=== PATIENT | male | born 1980 | race Caucasian/White ===

== ENCOUNTER 2019-10-08 08:22 | Emergency (ER) | payer BC ==
[2019-10-08] MEDS ORDERED: FLUORESCEIN STRIPS 1 MG STRIP LEFT EYE ONE (08:26)
[2019-10-08 08:29] VITALS: BP 127/79; PULSE 71; RESP 18; TEMP 98
[2019-10-08] MEDS ORDERED: PROPARACAINE 0.5% OPHTH DROPS 15 ML BTL LEFT EYE STA (08:30)
[2019-10-08] MEDS ORDERED: TOBRAMYCIN 0.3% OPHTH DROPS 5 ML BTL LEFT EYE STA (08:44)
--- NOTE | 2019-10-08 08:49 | ED ---
General Adult HPI - General Chief complaint: Eye Problems Stated complaint: lt eye pain Time Seen by Provider: 10/08/19 08:29 Source: patient, RN notes reviewed Mode of arrival: ambulatory Limitations: no limitations - History of Present Illness Initial comments: Patient is a pleasant 39-year-old male presenting to the emergency Department with left eye discomfort. Patient was cutting some metal earlier in the day yesterday however did have glasses on. Patient states his eye was bugging him in the evening, approximate 6 or more hours after this. Patient took his contact out however does feel like he may have scratched up. Patient has had discomfort since that time. Patient has had similar symptoms previously associated with a scratch. Tetanus immunization is up-to-date. Patient feels his vision is well. No fever. His eye appears red to him and he is having some clear drainage. - Related Data Allergies Allergy/AdvReac Type Severity Reaction Status Date / Time No Known Allergies Allergy Verified 10/08/19 08:26 Review of Systems ROS Statement: Those systems with pertinent positive or pertinent negative responses have been documented in the HPI. ROS Other: All systems not noted in ROS Statement are negative. Constitutional: Denies: fever Eyes: Reports: as per HPI, eye pain. Denies: vision change ENT: Denies: ear pain Respiratory: Denies: dyspnea Cardiovascular: Denies: chest pain Endocrine: Denies: fatigue Gastrointestinal: Denies: abdominal pain Genitourinary: Denies: dysuria Musculoskeletal: Denies: back pain Skin: Denies: rash Neurological: Denies: weakness Past Medical History Past Medical History: No Reported History History of Any Multi-Drug Resistant Organisms: None Reported Past Surgical History: No Surgical Hx Reported Past Psychological History: No Psychological Hx Reported Smoking Status: Current every day smoker Past Alcohol Use History: Occasional General Exam Limitations: no limitations General appearance: alert, in no apparent distress Head exam: Present: atraumatic Eye exam: Present: PERRL, EOMI, conjunctival injection (left) Pupils: Present: other (flurosceine stain with uptake superior portion of the left pupil and a second one just above this. No evidence of foreign body.) Expanded Eyelids: Normal Inspection: Bilateral Pupils: Regular, Round: Bilateral Sclera/Conjunctival: Injection: Left Neck exam: Present: normal inspection Respiratory exam: Present: normal lung sounds bilaterally Cardiovascular Exam: Present: regular rate, normal rhythm Extremities exam: Present: normal inspection Neurological exam: Present: alert Psychiatric exam: Present: normal affect, normal mood Skin exam: Present: normal color Course Vital Signs 10/08/19 08:26 Temperature 98 F Pulse Rate 71 Respiratory 18 Rate Blood Pressure 127/79 O2 Sat by Pulse 99 Oximetry Disposition Clinical Impression: Corneal abrasion Disposition: HOME SELF-CARE Condition: Stable Instructions (If sedation given, give patient instructions): Corneal Abrasion (ED) Additional Instructions: Please follow-up with primary care physician and elementary school music teacher in the next couple days for recheck. Return for thick or purulent discharge, fever, increased pain, visual change, worsening symptoms or any other concerns. Do not wear contacts for the next week. Use eye drops: 1 drop every 4 hours while awake for the next week. Is patient prescribed a controlled substance at d/c from ED?: No Referrals: Jose Montero [STAFF PHYSICIAN] - 1-2 days Adriana Abreu MD [STAFF PHYSICIAN] - 1-2 days Time of Disposition: 08:48
== END 2019-10-08 09:00 | disposition home or self-care (01) ==
LOC: EC 08:22
DX: S05.02XA Injury of conjunctiva and corneal abrasion without foreign body, left eye, initial encounter (principal); F17.200 Nicotine dependence, unspecified, uncomplicated; X58.XXXA Exposure to other specified factors, initial encounter
CPT/HCPCS: 99283